=== PATIENT | female | born 1950 | race Two or more races ===

== ENCOUNTER → 2016-10-03 | Outpatient (CLI) | payer OTHER, MEDICAID ==
[~2016-10-03] MED LIST: TRIH2TAB3 PO
== END | disposition home or self-care (01) ==
LOC: RADPV 11:11
PROVIDERS: ATTEND Family Medicine
DX: M47.896 Other spondylosis, lumbar region (principal); M41.86 Other forms of scoliosis, lumbar region; M43.8X6 Other specified deforming dorsopathies, lumbar region; M81.0 Age-related osteoporosis without current pathological fracture
CPT/HCPCS: 72100